=== PATIENT | female | born 1930 | race Caucasian/White ===

== ENCOUNTER 2017-01-16 21:37 | Emergency (ER) | payer MEDICARE ==
--- NOTE | 2017-01-16 22:54 | ED.PDOC ---
History of Present Illness - General Chief Complaint: Abdominal Pain Stated Complaint: abdominal pain;nausea vomiting Time Seen by Provider: 01/16/17 22:48 Source: patient Exam Limitations: no limitations - History of Present Illness Initial Comments: Ms Sheets 86 y/o female with no chronic medical problem stated that she had experienced on and off abdominal cramps this am accompanied by nausea and vomiting had tried to eat or drink stated comes back right up.Had bowel movement yesterday also had history of bowel obstruction in the past Timing/Duration: other - 18 hours Severity: moderate Improving Factors: nothing Worsening Factors: nothing Associated Symptoms: denies symptoms Allergies/Adverse Reactions: Allergies antibiotic Adverse Reaction (Uncoded 01/16/17 23:10) Home Medications: Ambulatory Orders Ondansetron [Zofran Odt] 8 mg PO Q8HRS PRN #10 tab 01/17/17 Review of Systems - Review of Systems Constitutional: States: no symptoms reported EENTM: States: no symptoms reported Respiratory: States: no symptoms reported Cardiology: States: no symptoms reported Gastrointestinal/Abdominal: States: see HPI Genitourinary: States: no symptoms reported Musculoskeletal: States: no symptoms reported Skin: States: no symptoms reported Neurological: States: no symptoms reported Endocrine: States: no symptoms reported Hematologic/Lymphatic: States: no symptoms reported Past Medical History (General) - Patient Medical History Hx Seizures: No Hx Stroke: No Hx Dementia: No Hx Asthma: No Hx of COPD: No Hx Cardiac Disorders: No Hx Congestive Heart Failure: No Hx Hypertension: No Hx Diabetes: No Family Medical History - Family History Father Family History: No Known - old age Physical Exam - Physical Exam General Appearance: Alert, No apparent distress Eye Exam: bilateral normal Ears, Nose, Throat: hearing grossly normal, normal ENT inspection, normal pharynx Neck: non-tender, full range of motion, supple Respiratory: normal breath sounds Cardiovascular/Chest: normal peripheral pulses, regular rate, rhythm, no edema, no gallop, no JVD Gastrointestinal/Abdominal: normal bowel sounds, non tender, soft, no organomegaly, no pulsatile mass, distended - slightly Back Exam: normal inspection, no CVA tenderness, no vertebral tenderness Extremity: normal range of motion, non-tender, normal inspection Neurologic: no motor/sensory deficits, alert, normal mood/affect Progress - Results/Orders Results/Orders: Allergies antibiotic Adverse Reaction (Uncoded 01/16/17 23:10) Clinical Data Height 5 ft 2 in Weight 130 lb Visit Reason NAUSEA/VOMITING General Patient Data Advance Directives Resuscitation Status Date of Arrival on Unit: Time of Arrival on Unit: Mode of Arrival Wheelchair Accompanied By Family Precaution/Isolation: Vital Signs Temp Pulse Resp BP Pulse Ox 76 16 126/74 95 01/16/17 22:53 01/16/17 22:53 01/16/17 22:53 01/16/17 22:53 I&O 01/15/17 01/16/17 01/17/17 05:59 06:59 06:59 Other: Weight 130 lb Laboratory Orders 01/16/17 22:56 URINALYSIS Stat Comment: Specimen: Nurse/Care Provider to collect Medications Orders 01/16/17 22:58 Sodium Chloride 0.9% 1000ML [Ns 1000 ml] 1,000 ml IVS .QD 01/16/17 22:56 URINALYSIS Stat 01/16/17 22:58 Sodium Chloride 0.9% 1000ML [Ns 1000 ml] 1,000 ml IVS .QD Laboratory Results WBC 13.0 K/mm3 (4.8-10.8) H 01/16/17 23:24 RBC 3.94 M/mm3 (4.20-5.40) L 01/16/17 23:24 Hgb 11.3 gm/dL (12.0-16.0) L 01/16/17 23:24 Hct 35.0 % (36.0-47.0) L 01/16/17 23:24 MCV 88.6 fl (81.0-99.0) 01/16/17 23:24 MCH 28.6 pg (27.0-31.0) 01/16/17 23:24 MCHC 32.4 g/dL (33.0-37.0) L 01/16/17 23:24 RDW 15.3 % (11.5-14.5) H 01/16/17 23:24 Plt Count 298 K/mm3 (130-400) 01/16/17 23:24 MPV 6.6 fl (7.40-10.4) L 01/16/17 23:24 Absolute Neuts (auto) 11.00 K/uL (1.8-6.8) H 01/16/17 23:24 Absolute Lymphs (auto) 1.00 K/uL (1.0-3.4) 01/16/17 23:24 Absolute Monos (auto) 0.90 K/uL (0.2-0.8) H 01/16/17 23:24 Absolute Eos (auto) 0.00 K/uL (0.0-0.4) 01/16/17 23:24 Absolute Basos (auto) 0.00 K/uL (0.0-0.1) 01/16/17 23:24 Neutrophils % 84.8 % (42.0-78.0) H 01/16/17 23:24 Lymphocytes % 7.8 % (20.0-50.0) L 01/16/17 23:24 Monocytes % 6.9 % (2.0-9.0) 01/16/17 23:24 Eosinophils % 0.3 % (1.0-5.0) L 01/16/17 23:24 Basophils % 0.2 % (0.0-2.0) 01/16/17 23:24 Sodium 137 mmol/L (135-145) 01/16/17 23:24 Potassium 3.8 mmol/L (3.6-5.0) 01/16/17 23:24 Chloride 102 mmol/L (101-111) 01/16/17 23:24 Carbon Dioxide 23 mmol/L (21-31) 01/16/17 23:24 Anion Gap 15.8 (12-18) 01/16/17 23:24 BUN 24 mg/dL (7-18) H 01/16/17 23:24 Creatinine 1.08 mg/dL (0.6-1.3) 01/16/17 23:24 BUN/Creatinine Ratio 22.2 (10-20) H 01/16/17 23:24 Random Glucose 121 mg/dL (70-105) H 01/16/17 23:24 Serum Osmolality 279.1 mOsm/L (275-295) 01/16/17 23:24 Calcium 9.4 mg/dL (8.4-10.2) 01/16/17 23:24 Total Bilirubin 1.1 mg/dL (0.2-1.0) H 01/16/17 23:24 AST 24 IU/L (10-42) 01/16/17 23:24 ALT 13 IU/L (10-60) 01/16/17 23:24 Alkaline Phosphatase 68 IU/L (42-121) 01/16/17 23:24 Serum Total Protein 7.9 gm/dL (6.4-8.2) 01/16/17 23:24 Albumin 4.3 g/dl (3.2-5.5) 01/16/17 23:24 Globulin 3.6 gm/dL (2.3-3.5) H 01/16/17 23:24 Albumin/Globulin Ratio 1.2 (1.1-1.9) 01/16/17 23:24 - EKG/XRAY/CT CT Ordered: Yes - no bowel obstruction,no diverticulitis,appendix normal Departure - Departure Clinical Impression: Nausea and vomiting in adult, Abdominal cramps Time of Disposition: 00:14 Disposition: Discharge to Home or Self Care Condition: Good Instructions: DI for Vomiting -- Adult, Nausea and Vomiting-Adult Diet: bland diet - Avoid greasy ,spicy foods until better Prescriptions: Ondansetron [Zofran Odt] 8 mg PO Q8HRS PRN #10 tab PRN Reason: Nausea/Vomiting Home Medications: Ambulatory Orders Ondansetron [Zofran Odt] 8 mg PO Q8HRS PRN #10 tab 01/17/17 Additional Instructions: RETURN TO EMERGENCY ROOM NEEDED
[2017-01-16] MEDS ORDERED: SODIUM CHLORIDE 0.9% 1000ML 1,000 ML IVS PRN (22:58)
--- NOTE | 2017-01-16 23:41 | CT ---
EXAM DESCRIPTION: Abdoment/Pelvis w/o Contrast CLINICAL HISTORY: 86 years Female pain COMPARISON: None. TECHNIQUE: Contiguous axial images obtained through the abdomen and pelvis without IV contrast. Reformatted images obtained. FINDINGS: Moderate to large hiatal hernia. Minimal atelectasis/scarring in the lower lungs. 0.3 cm nodular lesion in the right lower lung. 12 month follow-up recommended if there are risk factors for malignancy. The liver appears unremarkable. The spleen and pancreas appear unremarkable. No adrenal masses. The kidneys appear unremarkable. No hydronephrosis or definite ureteral calculi. The gallbladder is visualized. No aneurysmal dilatation of the aorta. The distal colon is slightly distended with stool. There is fluid within mildly prominent loops of small bowel and the ascending, transverse and proximal descending portions of the colon are distended with liquid stool. The appendix is not definitely visualized. There are occasional colonic diverticula. No free pelvic fluid. There are changes from previous hysterectomy. Postsurgical changes in the right hip. Mild curvature in the lumbar spine convex left. Degenerative changes in the spine. IMPRESSION: Loops of small bowel and portions of the colon are distended with liquid appearing stool. The findings may be secondary to gastroenteritis. Small nodular lesion in the right lower lung. 12 month follow-up recommended if there are risk factors for malignancy. Moderate to large hiatal hernia. Electronically signed by: Eugene Morales MD 01/16/2017 11:39 PM CDT
[2017-01-16] MEDS ORDERED: ONDANSETRON INJ 4 MG/2 ML VIAL IV ONE (23:53)
[2017-01-16] MEDS ORDERED: SODIUM CHLORIDE 0.9% 500ML 500 ML IVS ONE (23:55)
[2017-01-17 01:24] VITALS: BP 128/75; TEMP 98.9; O2SAT 96
== END 2017-01-17 00:50 | disposition home or self-care (01) ==
LOC: ER 21:37
DX: R10.9 Unspecified abdominal pain (principal); R11.2 Nausea with vomiting, unspecified; Z88.1 Allergy status to other antibiotic agents
CPT/HCPCS: 36415; 74176; 80053; 85025; J2060; J2405; J7030